=== PATIENT | female | born 1995 | race Caucasian/White ===

== ENCOUNTER 2018-09-17 14:59 | Outpatient (CLI) | payer OTHER | END 2018-09-17 15:00 | disposition critical access hospital (66) | LOC: EMS 14:59 | PROVIDERS: ATTEND Surgery | DX: R11.2 Nausea with vomiting, unspecified (principal); R19.7 Diarrhea, unspecified; R10.9 Unspecified abdominal pain; R68.83 Chills (without fever) | CPT/HCPCS: A0425; A0427 ==

== ENCOUNTER 2018-09-17 15:11 | Emergency (ER) | payer OTHER ==
[2018-09-17 16:31] LABS: BILIRUBIN,URINE NEGATIVE (NEGATIVE); GLUCOSE, URINE (UA) NEGATIVE (NEGATIVE); KETONES,URINE (UA) >=80 mg/dL (NEGATIVE); LEUKOCYTE ESTERASE, URINE NEGATIVE (NEGATIVE); NITRITE,URINE POSITIVE (NEGATIVE); OCCULT BLOOD,URINE TRACE-INTA (NEGATIVE); PROTEIN,URINE NEGATIVE (NEGATIVE); UROBILINOGEN,URINE 0.2 (NORMAL) E.U./dL (NORMAL)
[2018-09-17 16:34] LABS: BASOPHILS # (AUTO) 0.1 10^3/uL (0.0-0.1); BASOPHILS % (AUTO) 0.5 %; EOSINOPHILS % (AUTO) 0.1 %; HGB - HEMOGLOBIN 13.9 g/dL (12.0-16.0); LYMPHOCYTES # (AUTO) 0.5 10^3/uL (1.5-3.5); LYMPHOCYTES % (AUTO) 4.3 %; MEAN CORPUSCULAR HEMOGLOBIN 31.1 pg (27.0-31.0); MEAN CORPUSCULAR VOLUME 91.5 fL (81.0-99.0); MEAN PLATELET VOLUME 9.2 fL (7.9-10.8); MONOCYTES # (AUTO) 0.4 10^3/uL (0.0-1.0); MONOCYTES % (AUTO) 3.7 %; NEUTROPHILS # (AUTO) 11.1 10^3/uL (1.5-6.6); NEUTROPHILS % (AUTO) 91.4 %; PLT - PLATELET COUNT 208 10^3/uL (130-450); RED BLOOD COUNT 4.48 10^6/uL (4.20-5.40); RED CELL DISTRIBUTION WIDTH 12.8 % (12.0-15.0); WHITE BLOOD COUNT 12.2 x10^3/uL (4.8-10.8)
[2018-09-17 16:35] LABS: CLARITY,URINE CLEAR (CLEAR); HCG UR QUAL NEGATIVE
[2018-09-17 16:46] LABS: ALBUMIN 4.1 g/dL (3.2-5.5); ALBUMIN/GLOBULIN RATIO 1.2 (1.0-2.2); BILIRUBIN,TOTAL 0.6 mg/dL (0.2-1.0); CALCIUM 8.6 mg/dL (8.5-10.3); CREATININE 0.7 mg/dL (0.4-1.0); TOTAL PROTEIN 7.4 g/dL (6.7-8.2)
[2018-09-17 16:48] LABS: BACTERIA,URINE Many /HPF (None Seen); MUCUS,URINE Few Strands; RBC,URINE 0-5 /HPF (0-5); SQUAMOUS EPITHELIAL CELL,UR MANY Squamous (<= Few)
--- NOTE | 2018-09-17 17:07 | ED Physician Documentation ---
PD HPI ABD PAIN - Stated complaint Stated Complaint: ABD PAIN/ N/V - Chief complaint Chief Complaint: Abd Pain - History obtained from History obtained from: Patient - History of Present Illness Timing - onset: How many days ago Timing - duration: Days (2) Timing - details: Gradual onset, Still present Quality: Cramping, Aching, Pain Location: Periumbilical (initially around umbilicus then settled into RLQ.), RLQ Radiation: No: Lower back, Right flank Improved by: No: Eating Worsened by: Eating, Moving, Palpation. No: Breathing Associated symptoms: Fever (subjective chills this morning), Nausea, Diarrhea (loose stools x 2-3 today.). No: Vomiting, Melena, Hematochezia Similar symptoms before: Has not had sx before Recently seen: Not recently seen Review of Systems Constitutional: reports: Chills, Myalgias Nose: denies: Rhinorrhea / runny nose, Congestion Throat: denies: Sore throat Respiratory: denies: Cough GI: reports: Abdominal Pain, Nausea (for 1-2 months, worse in mornings.), Diarrhea. denies: Abdominal Swelling, Vomiting, Constipation, Bloody / black stool : denies: Dysuria, Frequency, Discharge, Irregular menses Skin: denies: Rash Musculoskeletal: denies: Back pain PD PAST MEDICAL HISTORY - Past Medical History Cardiovascular: None Respiratory: None Neuro: None Endocrine/Autoimmune: None GI: None - Present Medications Home Medications: Ambulatory Orders Medication Instructions Recorded Confirmed Amox/Clav 875/125 [Augmentin] 1 each PO Q12H #14 tablet 09/17/18 Control 09/17/18 Famotidine 20 mg PO DAILY #30 tablet 09/17/18 Hydrocodone/Acetaminophen [[place] 1 each PO Q6H PRN #15 tablet 09/17/18 5-325 Tablet] Ondansetron Odt [Zofran] 4 mg TL Q6H PRN #20 tablet 09/17/18 dexAMETHasone [Decadron] 4 mg PO DAILY #5 tablet 09/17/18 - Allergies Allergies/Adverse Reactions: Allergies Allergy/AdvReac Type Severity Reaction Status Date / Time No Known Drug Allergies Allergy Verified 09/17/18 15:30 - Social History Does the pt smoke?: No Smoking Status: Never smoker ETOH Use: Beer, Other PD ED PE NORMAL - Vitals Vital signs reviewed: Yes - General General: Alert and oriented X 3, Well developed/nourished, Other (appears uncomfortable and holding lower abd. ) - HEENT HEENT: Pharynx benign - Neck Neck: Supple, no meningeal sign, No adenopathy - Cardiac Cardiac: RRR, No murmur - Respiratory Respiratory: Clear bilaterally - Abdomen Abdomen: Non distended, No organomegaly, Other (abd tender RLQ with local guarding, percussion and rebound tenderness. ). No: Normal bowel sounds (diminished) - Female Female : Deferred - Rectal Rectal: Deferred - Back Back: No CVA TTP - Derm Derm: Normal color, Warm and dry - Extremities Extremities: No edema, No calf tenderness / cord - Neuro Neuro: Alert and oriented X 3, No motor deficit, Normal speech Results - Vitals Vitals: Oxygen O2 Source Room air - Labs Labs: Laboratory Tests 09/17/18 09/17/18 09/17/18 16:00 16:25 16:25 WBC 12.2 H RBC 4.48 Hgb 13.9 Hct 41.0 MCV 91.5 MCH 31.1 H MCHC 34.0 RDW 12.8 Plt Count 208 MPV 9.2 Neut # (Auto) 11.1 H Lymph # (Auto) 0.5 L [place] # (Auto) 0.4 Eos # (Auto) 0.0 Baso # (Auto) 0.1 Absolute Nucleated RBC 0.00 Nucleated RBC % 0.0 Sodium 138 Potassium 3.5 Chloride 108 Carbon Dioxide 19 L Anion Gap 11.0 BUN 11 Creatinine 0.7 Estimated GFR (MDRD) 105 Glucose 104 H Calcium 8.6 Total Bilirubin 0.6 AST 16 ALT 15 Alkaline Phosphatase 59 Total Protein 7.4 Albumin 4.1 Globulin 3.3 Albumin/Globulin Ratio 1.2 Lipase 35 Urine Color DARK YELLOW Urine Clarity CLEAR Urine pH 6.0 Ur Specific [place] 1.025 Urine Protein NEGATIVE Urine Glucose (UA) NEGATIVE Urine Ketones >=80 H Urine Occult Blood TRACE-INTA Urine Nitrite POSITIVE H Urine Bilirubin NEGATIVE Urine Urobilinogen 0.2 (NORMAL) Ur Leukocyte Esterase NEGATIVE Urine RBC 0-5 Urine WBC 0-3 Ur Squamous Epith Cells MANY Squamous H Urine Bacteria Many H Urine Mucus Few Strands Ur Microscopic Review INDICATED Urine Culture Comments NOT INDICATED Urine HCG, Qual NEGATIVE - Rads (name of study) abd CT Radiology: Prelim report reviewed (appendix well seen and normal. There is wall thickening at cecum and ascending colon in small segment. No free fluid. Else normal. ), See rad report PD MEDICAL DECISION MAKING - ED course Complexity details: reviewed results (She has a segment of colitis in ascending colon and cecum. Appendix is normal. Consider GE with local colitis. Consider Crohns disease as well, given the location of it. ), re-evaluated patient (feeling better with IV fluids and meds. ), considered differential (focal tenderness RLQ with percussion and some rebound. Elevated WBC (done by nursing triage orders). Very concerning for appendicitis. ALso with nausea for couple months, consider gastritis. ), d/w patient Departure - Departure Disposition: Home, Self Care Clinical Impression: Abdominal pain Qualifiers: Abdominal location: right lower quadrant Qualified Code(s): R10.31 - Right lowe r quadrant pain Nausea and vomiting Qualifiers: Vomiting type: unspecified Vomiting Intractability: non-intractable Qualified Code(s): R11.2 - Nausea with vomiting, unspecified Segmental colitis Qualifiers: Digestive disease complication type: without complication Qualified Code(s): K50.10 - Crohn's disease of large intestine without complications Condition: Stable Record reviewed to determine appropriate education?: Yes Instructions: ED Gastroenteritis Bacterial Follow-Up: Daniel Urbano MD [Provider Admit Priv/Credential] - [facility] [Provider Group] Prescriptions: Amox/Clav 875/125 [Augmentin] 1 each PO Q12H #14 tablet dexAMETHasone [Decadron] 4 mg PO DAILY #5 tablet Famotidine 20 mg PO DAILY #30 tablet Hydrocodone/Acetaminophen [[place] 5-325 Tablet] 1 each PO Q6H PRN #15 tablet PRN Reason: Pain Ondansetron Odt [Zofran] 4 mg TL Q6H PRN #20 tablet PRN Reason: Nausea / Vomiting Comments: Small frequent fluids and bland food. Use ondansetron if needed for nausea and Tylenol or hydrocodone as needed for pain. You do have an area of inflammation of the colon on the right lower area of your abdomen. We will treat this as infectious with Augmentin twice daily for a week. Likely some inflammation as a cause and take Decadron daily for 5 days. Recheck if not improved over the next couple of days. Take famotidine daily for the next month and see if that helps with the ongoing nausea you have had. Follow-up and obtain a primary care provider locally. Follow-up also with surgery for potential scoping to look for ulcers or inflammatory colitis such as Crohn's disease. Forms: Activity restrictions Discharge Date/Time: 09/17/18 20:00
[2018-09-17] MEDS ORDERED: ONDANSETRON 4 MG/2 ML VIAL IVP STA (17:24)
[2018-09-17] MEDS ORDERED: SODIUM CHLORIDE 0.9% 1,000 ML IV ONE ×2 (17:24→17:26)
[2018-09-17] MEDS ORDERED: MORPHINE 10 MG/ML VIAL IVP STA (17:24)
[2018-09-17] MEDS ORDERED: FAMOTIDINE 20 MG/2 ML VIAL IVP STA (17:25)
[2018-09-17] MEDS ORDERED: IOVERSOL 320 100 ML VIAL IVP ONE ×2 (17:59→18:03)
--- NOTE | 2018-09-17 18:26 | CT Report ---
Reason: RLQ pain and vomiting Procedure Date: 09/17/2018 Accession Number: [id number] / [id number] Procedure: CT - Abdomen/Pelvis W CPT Code: FULL RESULT: EXAM: CT ABDOMEN AND PELVIS EXAM DATE: 09/17/2018 06:02 PM. CLINICAL HISTORY: RLQ pain and vomiting. COMPARISONS: None available. TECHNIQUE: Routine helical CT imaging was performed through the abdomen and pelvis. IV contrast: OPTI 320 80 mL. Enteric contrast: No. Reconstructions: Coronal and sagittal. In accordance with CT protocol optimization, one or more of the following dose reduction techniques were utilized for this exam: automated exposure control, adjustment of mA and/or KV based on patient size, or use of iterative reconstructive technique. FINDINGS: Lung Bases: Unremarkable. Liver: The liver is somewhat low in attenuation, which may be secondary to fatty infiltration. Gallbladder/Bile Ducts: Unremarkable. Spleen: Normal. Pancreas: Normal. Adrenal Glands: Normal. Kidneys: No hydronephrosis or nephrolithiasis. Peritoneal Cavity/Bowel: Nonobstructive bowel gas pattern. The cecal and ascending colon mucosa mildly enhances with possible submucosal edema. No free air or free fluid. The appendix is well visualized and normal. Pelvic Organs: Unremarkable by CT. Vasculature: No aneurysms or other significant abnormality. Bones: No acute fracture or dislocation. Other: None. IMPRESSION: Normal appendix. No evidence of acute appendicitis. Possible infectious or inflammatory colitis involving the cecum and ascending colon. Hepatic steatosis. RADIA
[2018-09-17] MEDS ORDERED: KETOROLAC 30 MG/ML VIAL IVP STA (19:00)
[2018-09-17] MEDS ORDERED: cefTRIAXone 1 GM VIAL IVP STA (19:00)
[2018-09-17 19:54] VITALS: BP 136/81
== END 2018-09-17 20:00 | disposition home or self-care (01) ==
LOC: ED 15:11
DX: K50.10 Crohn's disease of large intestine without complications (principal); K76.0 Fatty (change of) liver, not elsewhere classified
CPT/HCPCS: 36415; 74177; 80053; 81001; 81025; 83690; 85025; 96361; 96374; 96375; 99283; 99284; Q9967; 81003; 87086

== ENCOUNTER 2018-09-19 11:35 | Emergency (ER) | payer OTHER ==
[2018-09-19 11:50] VITALS: BP 114/71
[2018-09-19] MEDS ORDERED: BUFFERED LIDOCAINE 10 ML SYRINGE SUBQ STA (12:07)
[2018-09-19] MEDS ORDERED: TETANUS/DIPHTHERIA/PERTUSSIS 0.5 ML SYRINGE IM ONE (12:07)
--- NOTE | 2018-09-19 12:11 | ED Physician Documentation ---
PD HPI LOWER EXT INJURY - Stated complaint Stated Complaint: RT FOOT LAC - Chief complaint Chief Complaint: Laceration - History obtained from History obtained from: Patient - History of Present Illness PD HPI LOW EXT INJURY LOCATION: Right, Foot Type of injury: Laceration (She dropped a plate and it cracked and 1 of the shards cut the top of her foot at home about 45 minutes ago) Review of Systems Constitutional: denies: Fever, Chills, Myalgias Musculoskeletal: reports: Reviewed and negative Neurologic: reports: Reviewed and negative PD PAST MEDICAL HISTORY - Past Medical History Cardiovascular: None Respiratory: None Neuro: None Endocrine/Autoimmune: None GI: None - Present Medications Home Medications: Ambulatory Orders Medication Instructions Recorded Confirmed Amox/Clav 875/125 [Augmentin] 1 each PO Q12H #14 tablet 09/17/18 09/19/18 Famotidine 20 mg PO DAILY #30 tablet 09/17/18 09/19/18 Hydrocodone/Acetaminophen [[place] 1 each PO Q6H PRN #15 tablet 09/17/18 09/19/18 5-325 Tablet] Ondansetron Odt [Zofran] 4 mg TL Q6H PRN #20 tablet 09/17/18 09/19/18 dexAMETHasone [Decadron] 4 mg PO DAILY #5 tablet 09/17/18 09/19/18 - Allergies Allergies/Adverse Reactions: Allergies Allergy/AdvReac Type Severity Reaction Status Date / Time No Known Drug Allergies Allergy Verified 09/19/18 11:50 - Social History Does the pt smoke?: No Smoking Status: Never smoker PD ED PE NORMAL - Vitals Vital signs reviewed: Yes - General General: Alert and oriented X 3, No acute distress - Extremities Extremities: Other (2 cm laceration top of the foot near the mid fourth metatarsal, just into subcutaneous fat. No distal neurovascular compromise.) - Neuro Neuro: Alert and oriented X 3, Normal speech - Psych Psych: Normal mood, Normal affect Results - Vitals Vitals: Vital Signs - 24 hr 09/19/18 11:47 Temperature 36.2 C L Heart Rate 66 Respiratory 16 Rate Blood Pressure 114/71 O2 Saturation 99 Oxygen O2 Source Room air Procedures - Laceration (location) R foot Length in cm: 2 Wound type: Linear Neurovascular status: Sensory intact, Motor intact, Vascular intact Tendon involvement: Tendon intact. No: Tendon Injury Anesthesia: Lidocaine 1%, With bicarb Wound Preparation: Irrigated copiously NS Skin layer closure: Nylon, Interrupted, Size #-0 - enter number (4-0), Sutures - enter # (3) Other: Patient tolerated well, No complications, Neurovascular intact, Tetanus booster given Complexity: Simple Departure - Departure Disposition: 01 Home, Self Care Clinical Impression: Laceration Condition: Good Record reviewed to determine appropriate education?: Yes Instructions: ED Laceration All Comments: Come back for any signs of infection which would include: Redness, swelling, drainage, increased pain, or fevers. You can wash it soap and water. Keep it covered and moist with bacitracin ointment which is available over the counter; avoid neosporin. Follow-up with your physician in 14 days for suture removal.
== END 2018-09-19 12:37 | disposition home or self-care (01) ==
LOC: ED 11:35
DX: S91.311A Laceration without foreign body, right foot, initial encounter (principal); W26.8XXA Contact with other sharp object(s), not elsewhere classified, initial encounter; Y92.009 Unspecified place in unspecified non-institutional (private) residence as the place of occurrence of the external cause; Z23 Encounter for immunization
CPT/HCPCS: 12001; 90471; 99282; 99283